=== PATIENT | female | born 1970 | race Caucasian/White ===

== ENCOUNTER 2016-05-05 07:22 | Day surgery (SDC) | payer OTHER ==
--- NOTE | 2016-04-23 10:01 | PREOPHP ---
DATE OF ADMISSION: 05/05/2016 STAFF PHYSICIAN: Dr. Susan Landers This 45-year-old female is being admitted for operative arthroscopy, possible reconstruction using i liotibial band autograft, right hip. 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 This caused the original tear in the labrum and the first surgery was to address this, repair the hip, paring down the bones which caused the original tear. About 7 months after the surgery, she started getting burning in her hip and pain with walking. MRI showed frayed tissue in the labrum and pockets of fluids and inflammation. She received a cortisone shot which did not make a differential, and so now she is going to get rebuilding of the labrum with an a utograft. PAST SURGICAL HISTORY: Significant for x2. She had 3 surgeries on the left foot for neur angelina, inguinal hernia repair, and uterine ablation. PAST MEDICAL HISTORY: Medical problems include a history of asthma. She was found to have a right bundle branch block in the past with a normal echocardiogram, hypothyroidism, and depression. She a lso has environmental allergies. FAMILY HISTORY: Significant for her father is 79, alive and well. Mother is 77 with osteoporosis a nd hypertension. She has 2 brothers who are alive and well. ALLERGIES: NONE. PRESENT MEDICATIONS: 1. Zoloft 200 mg a day. 2. Levothyroxine 50 mg a day. 3. Cytomel 5 mg a day. 4. Zyrtec 10 mg a day. 5. Albuterol p.r.n. 6. Flonase p.r.n. REVIEW OF SYSTEMS: Was done in its entirety and was found to be positive for depression, history of abnormal EKG with a right bundle branch block, normal echo. History of asthma, otherwise negative review of systems. PHYSICAL EXAMINATION: GENERAL: This is a well-developed, well-nourished female in no acute distress. VITAL SIGNS: Her height is 65 inches, weight 144. Blood pressure 130/80, pulse 62, respiratory rat e is 12, O2 sat 98%, temperature 96.1. HEAD: Normocephalic, atraumatic. EYES: Pupils are equal, round, reactive to light and accommodation. Extraocular motions intact. S clerae and conjunctivae are clear. Funduscopic exam is unremarkable. EARS, NOSE, AND THROAT: Clear. NECK: Supple. Trachea is midline. Thyroid is normal size and shape without nodules or bruits. LUNGS: Clear to P and A. HEART: Shows a regular rate without murmur, rub, or gallop. PMI normal position. BACK: She has no CVA tenderness or point tenderness over her spine or spinal deformity. ABDOMEN: Soft, normal bowel sounds, no masses, tenderness, organomegaly, bruits or herniation. EXTREMITIES: She has no clubbing, cyanosis or edema. Distal pulses are intact. RECTAL AND GENITALIA: Recently done by her DUB ROOM ENGINEER, hip exam as per the orthopedic surgeon. IMPRESSION: Internal derangement, right hip, with labral fraying, history of the hip dysplasia, and FAIM. The patient is cleared for the above-mentioned surgery. Other medical problems including h ypothyroidism and depression should not impact her surgery. She is cleared for surgery and should h ave no problems. Dr. Amanda Chew dictating Pre-Operative HP for Dr. Susan Landers. Dictated By: SUSAN HILL/OSIRIS Conf#: [id number] DID#: [id number]
[2016-05-05] VITALS (15 sets, daily range): BP systolic 109–127; BP diastolic 66–85; PULSE 66–97; RESP 8–18; Ht 165.1 cm; Wt 65.1 kg
[~2016-05-05] VITALS: Ht 165.1 cm; Wt 65.1 kg
[~2016-05-05 07:22] MED LIST: CEFAZOLIN 1 GM INJ ONE
[2016-05-05] MEDS ORDERED: GABAPENTIN 300 MG CAP PO ONE (08:00)
[2016-05-05] MEDS ORDERED: CEFAZOLIN 2 GM/50 ML (PMX) 50 ML IVPB ONE (08:00)
[2016-05-05] MEDS ORDERED: traMADol 50 MG TAB PO ONE (08:00)
[2016-05-05] MEDS ORDERED: PROPOFOL 20 ML ONE (08:42)
[2016-05-05] MEDS ORDERED: FENTAnyl 50 MCG/ML VIAL ONE (08:42)
[2016-05-05] MEDS ORDERED: GLYCOPYRROLATE 0.4 MG INJ ONE (08:42)
[2016-05-05] MEDS ORDERED: LIDOCAINE 100 MG SYRINGE ONE (08:42)
[2016-05-05] MEDS ORDERED: MIDAZOLAM 1 MG/ML 2 ML INJ ONE (08:42)
[2016-05-05] MEDS ORDERED: ONDANSETRON 4 MG INJ ONE (08:42)
[2016-05-05] MEDS ORDERED: NEOSTIGMINE 3 MG/3 ML SYRINGE ONE (08:42)
[2016-05-05] MEDS ORDERED: ROCURONIUM 50 MG INJ ONE (08:42)
[2016-05-05] MEDS ORDERED: DEXAMETHASONE 4 MG/ML 1 ML INJ ONE (08:43)
--- NOTE | 2016-05-05 08:44 | HPN ---
Date/Time of Note Date/Time of Note DATE: 05/05/16 TIME: 08:44 Interval H&P Admission Note Pt. seen H&P reviewed: No system changes SUSAN NEWSOME MD May 05, 2016 08:44
[2016-05-05] MEDS ORDERED: LEVO25TA59 PO (08:54)
[2016-05-05] MEDS ORDERED: LIOT25TA3 PO (08:54)
[2016-05-05] MEDS ORDERED: SERT100T PO (08:55)
[2016-05-05] MEDS ORDERED: CETI5SOL PO (08:55)
[2016-05-05] MEDS ORDERED: ALBU2.5V3 NEB (08:55)
[2016-05-05] MEDS ORDERED: DIPHENHYDRAMINE 50 MG INJ IV PRN (10:30)
[2016-05-05] MEDS ORDERED: hydrALAzine 20 MG INJ IV PRN (10:30)
[2016-05-05] MEDS ORDERED: EPHEDrine SULFATE 50 MG/5 ML SYG IV PRN (10:30)
[2016-05-05] MEDS ORDERED: MEPERIDINE 25 MG INJ IV PRN (10:30)
[2016-05-05] MEDS ORDERED: FENTAnyl 50 MCG/ML VIAL IV PRN ×3 (10:30)
[2016-05-05] MEDS ORDERED: TRIMETHOBENZAMIDE 100 MG/ML VIAL IM PRN (10:30)
[2016-05-05] MEDS ORDERED: HYDROmorphONE (0.2 MG/ML) 10ML SYG IV PRN ×3 (10:30)
[2016-05-05] MEDS ORDERED: ONDANSETRON 4 MG INJ IV PRN (10:30)
[2016-05-05] MEDS ORDERED: MIDAZOLAM 1 MG/ML 2 ML INJ IV PRN (10:30)
[2016-05-05] MEDS ORDERED: LABETALOL HCL 20MG INJ IV PRN (10:30)
[2016-05-05] MEDS ORDERED: METOCLOPRAMIDE 10 MG INJ ONE (10:44)
--- NOTE | 2016-05-05 10:51 | PDOCDIS ---
Discharge Instructions DIAGNOSIS Discharge Diagnosis: Right hip labral tear CONDITION Patient Condition: Good HOME CARE INSTRUCTIONS: Diet Instructions: Regular ACTIVITY: Activity Restrictions: Slowly Increase Activity Keep Limb Elevated Bathing Restrictions: Shower FOLLOW UP/APPOINTMENTS Appointments Two weeks SCHOOL/WORK RELEASE May return to School/Work with: With Restrictions School/Work Release Comment: Foot flat weight bearing for four weeks SUSAN NEWSOME MD May 05, 2016 10:51
--- NOTE | 2016-05-05 11:23 | OPR ---
DATE OF OPERATION: 05/05/2016 PREOPERATIVE DIAGNOSIS: Right hip labral tear. POSTOPERATIVE DIAGNOSIS: Right hip labral tear. OPERATION PERFORMED: Right hip arthroscopic labral repair with capsular closure. SURGEON: Susan Landers MD EDUCATIONAL PROGRAM ASSISTANT: Tristian Delgado MD Commercial Hvac Service Technician surgeon, Tristian Delgado MD, was asked to be present at my request as a result of the complexit y associated with the procedure including the use of the 70-degree arthroscope, which is significant ly more complex than the standard arthroscope. In addition, suture knot tying and visualization are difficult. In my opinion, the assistance offered by a production technician is insufficient and Dr. Delgado should be compensated for his time. PROCEDURE IN DETAIL: Following administration of general endotracheal anesthesia, the patient was p laced in the supine position and positioned on the Fuchs-Nephew traction device. Sterile prep and d rape of the right lower extremity was then undertaken followed by infiltration with local anesthetic . Anterior and anterolateral portals were then established using endoscopic and fluoroscopic guidan ce. Examination diagnostically revealed that the prior labral repair appeared to be healed. The mo re lateral aspect appeared to be redundant and there was some grade II chondral delamination with a positive wave sign. There was no significant bony impingement that was evident residually. There was a grade III chondral articular lesion in the central portion of the femoral head, similar to the last time that she had had surgery. This appeared relatively unchanged. There were some ost eophytic changes in the femoral notch, which appeared to progressive as well. This area was debride d down to stable tissue. The sublabral recess was then cleared of soft tissue. The area of labral detachment laterally, whic h was from about the 11 o'clock to the 9 o'clock position was then cleared of soft tissue. A drill hole was then created and using a #2 suture, this was passed circumferentially around the redundant labral tissue. This was incorporated into an Arthrex PushLock anchor. The anchor was impacted, sut ure was advanced, and a solid repair of the labrum was completed. The leg was then flexed. The per ipheral compartment evaluated and no significant residual cam lesion was noted. With the leg in extended position, the sutures from the prior repair that was just completed, were t hen used to imbricate the capsule. These were passed in a mattress fashion, sliding knots were used and a capsular closure was completed. The joint was irrigated. Portals closed using 4-0 Monocryl, Steri-Strips, sterile dressing. The pa tient was then awakened and transported to recovery in stable condition, tolerated the procedure edison dee Dictated By: SUSAN HILL/OSIRIS Conf#: [id number] DID#: [id number]
[2016-05-05] MEDS ORDERED: BUPIVACAINE 0.5% (SDV) 30 ML, morphine SULFATE (PF) 8 MG, EPINEPHrine 0.3 MG, KETOROLAC... IRR SCH ×7 (13:00)
--- NOTE | 2016-05-05 13:05 | RADRPT ---
PROCEDURE: Intraoperative imaging of the right hip with fluoroscopy. CLINICAL INDICATION: Right hip pain. Intraoperative. TECHNIQUE: Four images of the right hip were obtained in the operating room with an image intensif ier. No radiologist was in attendance. 13.8 seconds of fluoroscopy time was used. COMPARISON: No prior study is available for comparison. FINDINGS: Images demonstrate surgical instruments overlying the right hip superiorly. IMPRESSION: 1. Satisfactory intraoperative imaging of the right hip. RPTAT: QQ .Jamarcus Means MD, Date Time Electronically viewed and signed by .Jamarcus Means MD, on 05/05/2016 13:05 .R/
== END 2016-05-05 13:50 | disposition home or self-care (01) ==
LOC: SDS 07:22
PROVIDERS: ATTEND Orthopaedic Surgery
DX: S73.191D Other sprain of right hip, subsequent encounter (principal); X58.XXXD Exposure to other specified factors, subsequent encounter; J45.909 Unspecified asthma, uncomplicated; E03.9 Hypothyroidism, unspecified
CPT/HCPCS: 29916; 73530; 84703; J0690; J1100; J2001; J2175; J2250; J2405; J2710; J3010; J0171; J0735; J1885; J2274; J2765; J3370